=== PATIENT | male | born 1975 | race Caucasian/White ===

== ENCOUNTER 2017-05-26 09:49 | Emergency (ER) | payer OTHER ==
[2017-05-26 10:15] LABS: BASOPHILS 0.2 % (0-2); EOSINOPHILS 1.6 % (0-7); HEMATOCRIT 48.2 % (42.0-54.0); HEMOGLOBIN 17.1 g/dL (13.5-17.5); IMMATURE GRANULOCYTES 0.1 % (0-5); MCH 30.4 pg (26.0-34.0); MCHC 35.5 g/dL (31.0-37.0); MCV 85.8 fL (80.0-100.0); MONOCYTES 8.1 % (2-11); PLATELET COUNT 222 10x3/uL (130-400); RBC 5.62 10x6/uL (4.20-6.10); RDW 13.1 % (11.5-14.5); WBC 11.6 10x3/uL (4.8-10.8)
[2017-05-26 10:59] LABS: ALBUMIN 3.8 g/dL (3.4-5.0); ALKALINE PHOSPHATASE 86 U/L (46-116); ALT (SGPT) 36 U/L (10-68); BILIRUBIN - TOTAL 1.45 mg/dL (0.2-1.3); CALC OSMOLALITY 286 mosm/kg (275-300); CALCIUM 9.5 mg/dL (8.5-10.1); CHLORIDE - SERUM 104 mmol/L (98-107); CREATININE - SERUM 1.1 mg/dL (0.6-1.3); GLUCOSE 162 mg/dL (74-106); POTASSIUM - SERUM 4.2 mmol/L (3.5-5.1); PROTEIN - SERUM 7.2 g/dL (6.4-8.2); SODIUM 141 mmol/L (136-145); UREA NITROGEN 17 mg/dL (7-18); eGFR NON AFRICAN AMERICAN 77 mL/min (90-120)
[2017-05-26 11:09] LABS: CKMB 0.6 U/L (0.0-3.6); CREATINE KINASE 87 UL (21-232); PRO BNP 134 pg/mL (0-125); TROPONIN-I 0.032 ng/mL (0.000-0.060)
== END 2017-05-26 13:27 | disposition short-term general hospital (02) ==
LOC: D.ER 09:49
PROVIDERS: Emergency Medicine
DX: I48.91 Unspecified atrial fibrillation (principal); I10 Essential (primary) hypertension; E11.9 Type 2 diabetes mellitus without complications

== ENCOUNTER 2018-04-06 13:48 | Emergency (ER) | payer OTHER ==
[~2018-04-06] VITALS: Ht 185.4 cm; Wt 145.5 kg
[2018-04-06 14:15] VITALS: Ht 185.4 cm; Wt 145.5 kg
[2018-04-06] MEDS ORDERED: GLUCOPHAGE1000 MG PO (14:17)
[2018-04-06] MEDS ORDERED: ZOVIRAX200 MG PO (14:17)
[2018-04-06] MEDS ORDERED: TOPROL XL50 MG PO (14:18)
[2018-04-06] MEDS ORDERED: CARDIZEM CD240 MG PO (14:18)
[2018-04-06] MEDS ORDERED: LIPITOR20 MG PO (14:19)
[2018-04-06] MEDS ORDERED: COZAAR25 MG PO (14:19)
[2018-04-06] MEDS ORDERED: ASPIRIN81 MG PO (14:19)
[2018-04-06] MEDS ORDERED: CYCLOBENZAPRINE10 MG PO (14:19)
[2018-04-06] MEDS ORDERED: COUMADIN2 MG PO (14:20)
[2018-04-06 14:49] LABS: BASOPHILS 0.4 % (0-2); EOSINOPHILS 2.3 % (0-7); HEMATOCRIT 43.5 % (42.0-54.0); HEMOGLOBIN 15.5 g/dL (13.5-17.5); IMMATURE GRANULOCYTES 0.1 % (0-5); LYMPHOCYTES 27.6 % (15-50); MCHC 35.6 g/dL (31.0-37.0); MCV 84.1 fL (80.0-100.0); MEAN PLATELET VOLUME 9.8 fL (7.4-10.4); MONOCYTES 5.6 % (2-11); PLATELET COUNT 178 10x3/uL (130-400); RBC 5.17 10x6/uL (4.20-6.10)
[2018-04-06 15:01] LABS: APTT 46.2 SECONDS (22.8-39.4); INR 3.92 (0.85-1.17); PROTIME 37.6 SECONDS (11.6-15.0)
[2018-04-06 15:10] LABS: ALBUMIN 3.7 g/dL (3.4-5.0); ALKALINE PHOSPHATASE 87 U/L (46-116); ALT (SGPT) 42 U/L (10-68); BILIRUBIN - TOTAL 0.83 mg/dL (0.2-1.3); CALC OSMOLALITY 289 mosm/kg (275-300); CALCIUM 8.8 mg/dL (8.5-10.1); CARBON DIOXIDE 26.2 mmol/L (21.0-32.0); CHLORIDE - SERUM 102 mmol/L (98-107); CREATININE - SERUM 0.9 mg/dL (0.6-1.3); GLUCOSE 276 mg/dL (74-106); POTASSIUM - SERUM 4.2 mmol/L (3.5-5.1); PROTEIN - SERUM 7.6 g/dL (6.4-8.2); SODIUM 139 mmol/L (136-145); UREA NITROGEN 17 mg/dL (7-18); eGFR NON AFRICAN AMERICAN > 90 mL/min (90-120)
[2018-04-06 16:31] LABS: CKMB 0.6 U/L (0.0-3.6); CREATINE KINASE 95 UL (21-232)
[2018-04-06 16:32] LABS: TROPONIN-I < 0.017 ng/mL (0.000-0.060)
[2018-04-06 18:41] VITALS: BP 136/74
== END 2018-04-06 18:41 | disposition home or self-care (01) ==
LOC: D.ER 13:48
PROVIDERS: Family Medicine
DX: R04.2 Hemoptysis (principal); E11.8 Type 2 diabetes mellitus with unspecified complications